=== PATIENT | female | born 1935 | race African-American/Black ===

== ENCOUNTER 2018-08-15 18:08 | Inpatient (IN) | payer OTHER, MEDICARE ==
[~2018-08-15] VITALS: Ht 160 cm; Wt 75.7 kg
[2018-08-15] MEDS ORDERED: SODIUM CHLORIDE 0.9% 1,000 ML IV ONE (19:21)
[2018-08-15 19:33] LABS: BASOPHILS % 1.1 % (0.0-2.0); CHLORIDE 111 mEq/L (98-107); EOSINOPHILS % 1.2 % (0.0-5.0); HEMATOCRIT. 30.4 % (36.0-48.0); HEMOGLOBIN. 10.3 g/dL (12.0-16.0); LYMPHOCYTES % 17.1 % (20.0-50.0); MEAN CORPUSCULAR HEMOGLOBIN 32.1 pg (28.0-32.0); MEAN CORPUSCULAR VOLUME 95.2 fL (81.0-99.0); MEAN PLATELET VOLUME 8.9 fl (7.4-10.4); MONOCYTES % 9.4 % (2.0-8.0); NEUTROPHILS % 71.2 % (40.0-76.0); PLATELET 256 x1000/uL (130-400); RED CELL DISTRIBUTION WIDTH 14.8 % (11.6-14.6)
[2018-08-15] MEDS ORDERED: IOHEXOL-300 100 ML BOTTLE ONE (21:49)
[2018-08-15] MEDS ORDERED: ONDANSETRON HCL 4MG/2ML INJ IV ONE (22:15)
[2018-08-16] VITALS (10 sets, daily range): BP systolic 96–134; BP diastolic 39–59
[2018-08-16] LABS: BASOPHILS % 0.2 % (0.0-2.0); EOSINOPHILS % 0.1 % (0.0-5.0); HEMATOCRIT. 23.8 % (36.0-48.0); LYMPHOCYTES % 8.4 % (20.0-50.0); MEAN CORPUSCULAR HEMOGLOBIN 32.2 pg (28.0-32.0); MEAN CORPUSCULAR VOLUME 96.2 fL (81.0-99.0); MEAN PLATELET VOLUME 8.1 fl (7.4-10.4); MONOCYTES % 6.4 % (2.0-8.0); NEUTROPHILS % 84.9 % (40.0-76.0); PLATELET 215 x1000/uL (130-400); RED BLOOD CELL COUNT 2.47 mill/uL (4.2-5.4); RED CELL DISTRIBUTION WIDTH 14.8 % (11.6-14.6)
[2018-08-16] MEDS ORDERED: ONDANSETRON HCL 4MG/2ML INJ IV ONE (02:30)
[2018-08-16] MEDS ORDERED: FAMO40TA7 MT (07:13)
[2018-08-16] MEDS ORDERED: ATOR10TA69 MT (07:13)
[2018-08-16] MEDS ORDERED: CHOL100046 MT (07:13)
[2018-08-16] MEDS ORDERED: AMLO10TA4 MT (07:13)
[2018-08-16] MEDS ORDERED: MONT10TA21 MT (07:13)
[2018-08-16] MEDS ORDERED: PNEUMOCOCCAL 23-VAL P-SAC VAC 0.5 ML IM ONE (07:15)
[2018-08-16] MEDS ORDERED: HYDRALAZINE 20MG/ML VIAL IV PRN (10:15)
[2018-08-16] MEDS ORDERED: NA PHOS,M-B/NA PHOS,DI-BA ENEMA 118ML PR PRN (10:15)
[2018-08-16] MEDS ORDERED: DIPHENHYDRAMINE 50MG/ML VIAL IV PRN (10:15)
[2018-08-16] MEDS ORDERED: CLONIDINE 0.1MG TABLET PO PRN (10:15)
[2018-08-16] MEDS ORDERED: DOCUSATE SODIUM 100MG CAPSULE PO PRN (10:15)
[2018-08-16] MEDS ORDERED: MAGNESIUM/ALUMINUM HYDROXIDE/SIMETHICONE 30ML UDC PO PRN (10:15)
[2018-08-16] MEDS ORDERED: ACETAMINOPHEN 650MG/20.3ML UDC PO PRN (10:15)
[2018-08-16] MEDS ORDERED: ACETAMINOPHEN 650MG SUPP PR PRN (10:15)
[2018-08-16] MEDS ORDERED: IPRATROPIUM/ALBUTEROL 0.5-3(2.5)MG/3ML NEB INH PRN (10:15)
[2018-08-16] MEDS ORDERED: GUAIFENESIN 200MG/10ML SUGAR FREE UDC PO PRN (10:15)
[2018-08-16] MEDS: DEXT 5%/0.45% NACL 1000ML 1,000 ML IV SCH (10:42)
[2018-08-16] MEDS: PANTOPRAZOLE 80 MG in SODIUM CHLORIDE 0.9% 100 ML IV SCH ×2 (12:09→22:27)
[2018-08-16 12:14] LABS: BASOPHILS % 0.4 % (0.0-2.0); EOSINOPHILS % 0.3 % (0.0-5.0); HEMATOCRIT. 24.1 % (36.0-48.0); LYMPHOCYTES % 11.5 % (20.0-50.0); MEAN CORPUSCULAR HEMOGLOBIN 31.5 pg (28.0-32.0); MEAN CORPUSCULAR VOLUME 94.4 fL (81.0-99.0); MEAN PLATELET VOLUME 9.6 fl (7.4-10.4); MONOCYTES % 8.6 % (2.0-8.0); NEUTROPHILS % 79.2 % (40.0-76.0); PLATELET 127 x1000/uL (130-400); RED BLOOD CELL COUNT 2.55 mill/uL (4.2-5.4); RED CELL DISTRIBUTION WIDTH 15.9 % (11.6-14.6)
[2018-08-16 12:20] LABS: CHLORIDE 116 mEq/L (98-107)
[2018-08-16] MEDS: SODIUM CHLORIDE 0.9% INJ 3ML FLUSH IVF SCH ×2 (14:00→22:27)
[2018-08-16] MEDS: IPRATROPIUM/ALBUTEROL 0.5-3(2.5)MG/3ML NEB INH SCH ×2 (15:12→20:50)
[2018-08-16 15:40] LABS: INR 1.1; PARTIAL THROMBOPLASTIN TIME 23.3 sec (23.4-31.0); PROTHROMBIN TIME 11.2 sec (9.6-11.0)
[2018-08-16] MEDS ORDERED: SORBITOL 70% SOLN 30ML PO NR ×2 (16:00→20:00)
[2018-08-17] VITALS (10 sets, daily range): BP systolic 101–128; BP diastolic 42–78
[2018-08-17 00:57] LABS: HEMATOCRIT 25.6 % (36.0-48.0); HEMOGLOBIN 8.6 g/dL (12.0-16.0); MEAN CORPUSCULAR HEMOGLOBIN 31.6 pg (28.0-32.0); MEAN CORPUSCULAR VOLUME 93.6 fL (81.0-99.0); PLATELET 154 x1000/uL (130-400); RED BLOOD CELL COUNT 2.73 mill/uL (4.2-5.4)
[2018-08-17] MEDS: IPRATROPIUM/ALBUTEROL 0.5-3(2.5)MG/3ML NEB INH SCH ×4 (02:00→20:42)
[2018-08-17] MEDS: SODIUM CHLORIDE 0.9% INJ 3ML FLUSH IVF SCH ×3 (05:57→20:56)
[2018-08-17 06:20] LABS: INR 1.1; PROTHROMBIN TIME 11.2 sec (9.6-11.0)
[2018-08-17 06:29] LABS: HEMATOCRIT 22.6 % (36.0-48.0); HEMOGLOBIN 7.7 g/dL (12.0-16.0); MEAN CORPUSCULAR VOLUME 93.4 fL (81.0-99.0); PLATELET 149 x1000/uL (130-400); RED BLOOD CELL COUNT 2.42 mill/uL (4.2-5.4); RED CELL DISTRIBUTION WIDTH 15.5 % (11.6-14.6)
[2018-08-17 08:25] LABS: CHLORIDE 114 mEq/L (98-107)
[2018-08-17] MEDS ORDERED: POTASSIUM CHLORIDE 20MEQ TABLET SR PO NR (09:30)
[2018-08-17] MEDS ORDERED: SIMETHICONE 40 MG/0.6 ML 30ML ONE ×2 (13:01→13:42)
[2018-08-17] MEDS ORDERED: FENTANYL CITRATE/PF 50MCG/ML 2ML VIAL ONE (13:27)
[2018-08-17] MEDS ORDERED: MIDAZOLAM HCL 5 MG/5 ML VIAL ONE (13:27)
[2018-08-17] MEDS ORDERED: MIDAZOLAM HCL 2 MG/2 ML VIAL IV PRN (13:38)
[2018-08-17] MEDS ORDERED: FENTANYL CITRATE/PF 50MCG/ML 2ML VIAL IV PRN (13:39)
[2018-08-17] MEDS ORDERED: BACTERIOSTATIC SODIUM CHLORIDE 0.9% 30ML VIAL IJ ONE (13:42)
[2018-08-17] MEDS ORDERED: DIPHENHYDRAMINE 50MG/ML VIAL IV PRN (13:49)
[2018-08-17] MEDS ORDERED: DIPHENHYDRAMINE 50MG/ML VIAL ONE (13:49)
[2018-08-17] MEDS ORDERED: PANTOPRAZOLE SODIUM 40 MG/VIAL IV ONE (16:39)
[2018-08-17] MEDS: PANTOPRAZOLE 80 MG in SODIUM CHLORIDE 0.9% 100 ML IV SCH ×2 (16:45→17:24)
[2018-08-17] MEDS: DEXT 5%/0.45% NACL 1000ML 1,000 ML IV SCH ×3 (16:46→17:36)
[2018-08-17 20:54] LABS: BASOPHILS % 0.4 % (0.0-2.0); EOSINOPHILS % 1.5 % (0.0-5.0); HEMATOCRIT. 22.7 % (36.0-48.0); HEMOGLOBIN. 7.5 g/dL (12.0-16.0); LYMPHOCYTES % 12.3 % (20.0-50.0); MEAN CORPUSCULAR HEMOGLOBIN 30.9 pg (28.0-32.0); MEAN CORPUSCULAR VOLUME 93.6 fL (81.0-99.0); MEAN PLATELET VOLUME 9.3 fl (7.4-10.4); MONOCYTES % 10.7 % (2.0-8.0); NEUTROPHILS % 75.1 % (40.0-76.0); PLATELET 133 x1000/uL (130-400); RED BLOOD CELL COUNT 2.43 mill/uL (4.2-5.4); RED CELL DISTRIBUTION WIDTH 15.6 % (11.6-14.6)
[2018-08-17 22:02] LABS: BASOPHILS % 0.3 % (0.0-2.0); EOSINOPHILS % 1.5 % (0.0-5.0); HEMATOCRIT. 21.2 % (36.0-48.0); HEMOGLOBIN. 7.2 g/dL (12.0-16.0); LYMPHOCYTES % 12.5 % (20.0-50.0); MEAN CORPUSCULAR HEMOGLOBIN 31.3 pg (28.0-32.0); MEAN CORPUSCULAR VOLUME 92.5 fL (81.0-99.0); MONOCYTES % 11.5 % (2.0-8.0); NEUTROPHILS % 74.2 % (40.0-76.0); PLATELET 134 x1000/uL (130-400); RED BLOOD CELL COUNT 2.29 mill/uL (4.2-5.4); RED CELL DISTRIBUTION WIDTH 15.7 % (11.6-14.6)
[2018-08-18] VITALS (11 sets, daily range): BP systolic 102–140; BP diastolic 42–62
[2018-08-18] MEDS: SODIUM CHLORIDE 0.9% INJ 3ML FLUSH IVF SCH ×3 (01:26→21:34)
[2018-08-18] MEDS: PANTOPRAZOLE 80 MG in SODIUM CHLORIDE 0.9% 100 ML IV SCH ×2 (01:26→14:48)
[2018-08-18] MEDS: DEXT 5%/0.45% NACL 1000ML 1,000 ML IV SCH ×3 (01:26→22:05)
[2018-08-18] MEDS: IPRATROPIUM/ALBUTEROL 0.5-3(2.5)MG/3ML NEB INH SCH ×4 (01:40→20:29)
[2018-08-18 05:31] LABS: HEMATOCRIT 25.2 % (36.0-48.0); HEMOGLOBIN 8.4 g/dL (12.0-16.0)
== END 2018-08-18 22:30 | disposition short-term general hospital (02) | DRG 377 ==
LOC: ER 18:08 → EDBEDREQ 08-16 00:16 → EDBEDREQTM 08-16 00:16 → 7WST 08-16 01:14 → EDBEDREQ 08-16 01:17 → EDBEDREQDT 08-16 01:17 → EDBEDREQTM 08-16 01:17 → ENRESERV 08-16 02:04
PROVIDERS: ADMIT Family Medicine; ATTEND Family Medicine
PROC: 30233N1 Transfusion of Nonautologous Red Blood Cells into Peripheral Vein, Percutaneous Approach (ICD-10-PCS; 2018-08-16)
PROC: 0DBM8ZZ Excision of Descending Colon, Via Natural or Artificial Opening Endoscopic (ICD-10-PCS; principal; 2018-08-17)
DX: K57.31 Diverticulosis of large intestine without perforation or abscess with bleeding (principal); E43 Unspecified severe protein-calorie malnutrition; D62 Acute posthemorrhagic anemia; I10 Essential (primary) hypertension; K63.5 Polyp of colon; E87.6 Hypokalemia; R73.9 Hyperglycemia, unspecified; Z68.29 Body mass index [BMI] 29.0-29.9, adult; J45.909 Unspecified asthma, uncomplicated; Z90.49 Acquired absence of other specified parts of digestive tract; Z85.038 Personal history of other malignant neoplasm of large intestine
CPT/HCPCS: 36415; 74177; 80048; 84484; 85014; 85018; 85027; 86850; 86900; 86920; 88305; 90732; 93005; 94640; 96365; 96375; 99152; 99153; 99285; C1893; C9113; J1200; J2250; J2405; J3010; J3490; J7030; J7040; J7050; J7620; P9016; P9021; Q9967; G0500

== ENCOUNTER 2019-06-12 03:24 | Inpatient (IN) | payer MEDICARE, OTHER ==
[2019-06-12] VITALS (8 sets, daily range): BP systolic 99–120; BP diastolic 54–72
[~2019-06-12] VITALS: Ht 157.5 cm; Wt 74.8 kg
[~2019-06-12 03:24] MED LIST: AMLO10TA4 MT; ATOR10TA69 MT; CHOL100046 MT; FAMO40TA7 MT; MONT10TA21 MT
[2019-06-12 04:28] LABS: BASOPHILS % 1.3 % (0.0-2.0); EOSINOPHILS % 5.9 % (0.0-5.0); HEMATOCRIT. 33.1 % (36.0-48.0); HEMOGLOBIN. 10.9 g/dL (12.0-16.0); MEAN CORPUSCULAR HEMOGLOBIN 31.5 pg (28.0-32.0); MEAN CORPUSCULAR VOLUME 95.3 fL (81.0-99.0); MEAN PLATELET VOLUME 9.5 fl (7.4-10.4); MONOCYTES % 13.2 % (2.0-8.0); NEUTROPHILS % 33.6 % (40.0-76.0); PLATELET 299 x1000/uL (130-400); RED BLOOD CELL COUNT 3.47 mill/uL (4.2-5.4); RED CELL DISTRIBUTION WIDTH 15.7 % (11.6-14.6)
[2019-06-12 04:33] LABS: CHLORIDE 108 mEq/L (98-107)
[2019-06-12 04:35] LABS: PROTHROMBIN TIME 10.7 sec (9.6-11.0)
[2019-06-12] MEDS ORDERED: TRANEXAMIC ACID 1,000 MG/10 ML IV ONE (05:00)
[2019-06-12] MEDS ORDERED: MAGNESIUM 2 G PREMIX 50 ML IV ONE (05:00)
[2019-06-12] MEDS ORDERED: TRANEXAMIC ACID 1,000 MG in SODIUM CHLORIDE 0.9% 100 ML IV NR (05:15)
[2019-06-12 06:07] LABS: HEMATOCRIT 28.8 % (36.0-48.0); HEMOGLOBIN 9.5 g/dL (12.0-16.0); MEAN CORPUSCULAR HEMOGLOBIN 31.8 pg (28.0-32.0); MEAN CORPUSCULAR VOLUME 96.1 fL (81.0-99.0); PLATELET 246 x1000/uL (130-400); RED CELL DISTRIBUTION WIDTH 15.7 % (11.6-14.6)
[2019-06-12] MEDS ORDERED: DIPHENHYDRAMINE 50MG/ML VIAL IV PRN (10:45)
[2019-06-12] MEDS ORDERED: NA PHOS,M-B/NA PHOS,DI-BA ENEMA 118ML PR PRN (10:45)
[2019-06-12] MEDS ORDERED: LORAZEPAM 2MG/ML CPJ IV PRN (10:45)
[2019-06-12] MEDS ORDERED: ONDANSETRON HCL 4MG/2ML INJ IV PRN (10:45)
[2019-06-12] MEDS ORDERED: IPRATROPIUM/ALBUTEROL 0.5-3(2.5)MG/3ML NEB NEB PRN (10:45)
[2019-06-12] MEDS ORDERED: HYDROCODONE/ACETAMINOPHEN 5/325MG TABLET PO PRN (10:45)
[2019-06-12] MEDS ORDERED: MAGNESIUM/ALUMINUM HYDROXIDE/SIMETHICONE 30ML UDC PO PRN (10:45)
[2019-06-12] MEDS ORDERED: CLONIDINE 0.1MG TABLET PO PRN (10:45)
[2019-06-12] MEDS ORDERED: DOCUSATE SODIUM 100MG CAPSULE PO PRN (10:45)
[2019-06-12] MEDS ORDERED: MORPHINE SULFATE 2 MG/ML CPJ (NOT FOR IM USE) IV PRN (10:45)
[2019-06-12] MEDS ORDERED: ACETAMINOPHEN 325MG TABLET PO PRN (10:45)
[2019-06-12] MEDS ORDERED: GUAIFENESIN 200MG/10ML SUGAR FREE UDC PO PRN (10:45)
[2019-06-12] MEDS: DEXT 5%/0.45% NACL 1000ML 1,000 ML IV SCH (11:45)
[2019-06-12 16:21] LABS: CHLORIDE 112 mEq/L (98-107)
[2019-06-12] MEDS: PANTOPRAZOLE SODIUM 40 MG/VIAL IV SCH (16:50)
[2019-06-12 19:29] LABS: HEMATOCRIT 29.8 % (36.0-48.0); HEMOGLOBIN 9.8 g/dL (12.0-16.0)
[2019-06-12 19:42] LABS: TOTAL IRON BINDING CAPACITY 243 ug/dL (250-450)
[2019-06-13] VITALS (55 sets, daily range): BP systolic 54–160; BP diastolic 33–108
[2019-06-13] MEDS: DEXT 5%/0.45% NACL 1000ML 1,000 ML IV SCH ×3 (00:09→21:40)
[2019-06-13 00:56] LABS: HEMATOCRIT 26.4 % (36.0-48.0); HEMOGLOBIN 8.7 g/dL (12.0-16.0)
[2019-06-13 04:36] LABS: BASOPHILS % 0.6 % (0.0-2.0); EOSINOPHILS % 4.6 % (0.0-5.0); HEMATOCRIT. 25.7 % (36.0-48.0); HEMOGLOBIN. 8.6 g/dL (12.0-16.0); LYMPHOCYTES % 20.2 % (20.0-50.0); MEAN CORPUSCULAR HEMOGLOBIN 31.2 pg (28.0-32.0); MEAN CORPUSCULAR VOLUME 93.7 fL (81.0-99.0); MEAN PLATELET VOLUME 8.9 fl (7.4-10.4); MONOCYTES % 13.9 % (2.0-8.0); NEUTROPHILS % 60.7 % (40.0-76.0); PLATELET 201 x1000/uL (130-400); RED BLOOD CELL COUNT 2.74 mill/uL (4.2-5.4); RED CELL DISTRIBUTION WIDTH 15.4 % (11.6-14.6)
[2019-06-13 08:06] LABS: CHLORIDE 113 mEq/L (98-107)
[2019-06-13 08:13] LABS: LDL CHOLESTEROL 56 mg/dL (5-100)
[2019-06-13 08:14] LABS: HDL CHOLESTEROL 46 mg/dL (40-59)
[2019-06-13 08:15] LABS: T4 FREE 0.91 ng/dL (0.76-1.46)
[2019-06-13] MEDS ORDERED: NOREPINEPHRINE 4 MG in DEXTROSE 5% WATER 250 ML IV PRN (09:30)
[2019-06-13] MEDS ORDERED: NOREPINEPHRINE 4MG/250ML PMX 250 ML IV ONE (09:30)
[2019-06-13 10:39] LABS: HEMATOCRIT 29.7 % (36.0-48.0)
[2019-06-13 11:15] LABS: T4 FREE 0.9 ng/dL (0.76-1.46)
[2019-06-13] MEDS: PANTOPRAZOLE SODIUM 40 MG/VIAL IV SCH (12:11)
[2019-06-13 17:42] LABS: HEMATOCRIT 31.5 % (36.0-48.0); HEMOGLOBIN 10.5 g/dL (12.0-16.0)
[2019-06-13 18:21] LABS: CREATINE KINASE 111 IU/L (26-192)
[2019-06-13 18:22] LABS: CREATINE KINASE MB FRACTION 1.1 ng/mL (0.5-3.6)
[2019-06-13] MEDS ORDERED: POTASSIUM CHLORIDE INJ 40 MEQ in DEXT 5% WATER 500 ML IV NR (21:00)
[2019-06-13 21:08] LABS: HEMATOCRIT 28.6 % (36.0-48.0); HEMOGLOBIN 9.7 g/dL (12.0-16.0)
[2019-06-13 21:25] LABS: CREATINE KINASE 104 IU/L (26-192)
[2019-06-14] VITALS (34 sets, daily range): BP systolic 107–172; BP diastolic 48–94
[2019-06-14 00:56] LABS: HEMATOCRIT 29.5 % (36.0-48.0); HEMOGLOBIN 9.9 g/dL (12.0-16.0)
[2019-06-14 05:32] LABS: HEMATOCRIT 29.4 % (36.0-48.0); HEMOGLOBIN 9.9 g/dL (12.0-16.0)
[2019-06-14 05:57] LABS: CREATINE KINASE MB FRACTION 1.2 ng/mL (0.5-3.6)
[2019-06-14] MEDS: PANTOPRAZOLE SODIUM 40 MG/VIAL IV SCH (08:15)
[2019-06-14] MEDS: DEXT 5%/0.45% NACL 1000ML 1,000 ML IV SCH ×2 (09:00→15:44)
[2019-06-14 09:38] LABS: HEMATOCRIT 28.1 % (36.0-48.0); HEMOGLOBIN 9.5 g/dL (12.0-16.0)
[2019-06-14 18:02] LABS: HEMATOCRIT 29.5 % (36.0-48.0); HEMOGLOBIN 9.7 g/dL (12.0-16.0)
[2019-06-16 04:07] LABS: CA 19-9 < 2 U/mL (0-35)
== END 2019-06-14 20:35 | disposition short-term general hospital (02) | DRG 378 ==
LOC: ER 03:24 → 5EST 06:39 → EDBEDREQTM 06:40 → EDBEDREQSVC 06:40 → EDBEDREQ 06:40 → ENRESERV 08:34 → CMPBEDREQ 06-13 07:37 → MICUSO 06-13 08:30 → 6WST 06-14 16:27
PROVIDERS: ADMIT Internal Medicine; ATTEND Internal Medicine
PROC: 30233H1 Transfusion of Nonautologous Whole Blood into Peripheral Vein, Percutaneous Approach (ICD-10-PCS; principal; 2019-06-12)
PROC: 02HV33Z Insertion of Infusion Device into Superior Vena Cava, Percutaneous Approach (ICD-10-PCS; 2019-06-13)
PROC: B548ZZA Ultrasonography of Superior Vena Cava, Guidance (ICD-10-PCS; 2019-06-13)
DX: K57.91 Diverticulosis of intestine, part unspecified, without perforation or abscess with bleeding (principal); E46 Unspecified protein-calorie malnutrition; E86.0 Dehydration; I50.9 Heart failure, unspecified; I11.0 Hypertensive heart disease with heart failure; K21.9 Gastro-esophageal reflux disease without esophagitis; D50.0 Iron deficiency anemia secondary to blood loss (chronic); E78.00 Pure hypercholesterolemia, unspecified; E78.5 Hyperlipidemia, unspecified; E87.6 Hypokalemia; J44.9 Chronic obstructive pulmonary disease, unspecified; I95.9 Hypotension, unspecified; Z85.038 Personal history of other malignant neoplasm of large intestine; Z90.49 Acquired absence of other specified parts of digestive tract; Z68.30 Body mass index [BMI] 30.0-30.9, adult; Z79.899 Other long term (current) drug therapy
CPT/HCPCS: 36415; 71045; 76937; 78278; 80048; 80053; 80061; 82105; 82270; 82378; 82550; 82553; 82728; 83036; 83540; 83550; 83880; 84439; 84443; 84484; 85014; 85018; 85025; 85027; 85379; 86301; 86850; 86900; 86920; 93005; 93306; 99285; A9560; C1725; C9113; J3475; J3480; J7050; J7060; P9016

== ENCOUNTER 2019-12-08 21:59 | Emergency (ER) | payer OTHER ==
[~2019-12-08] VITALS: Ht 160 cm; Wt 68.0 kg
[2019-12-08 23:17] LABS: BASOPHILS % 0.9 % (0.0-2.0); EOSINOPHILS % 3.1 % (0.0-5.0); HEMATOCRIT. 34.6 % (36.0-48.0); HEMOGLOBIN. 11.5 g/dL (12.0-16.0); LYMPHOCYTES % 28.2 % (20.0-50.0); MEAN CORPUSCULAR HEMOGLOBIN 31.4 pg (28.0-32.0); MEAN CORPUSCULAR VOLUME 94.3 fL (81.0-99.0); MEAN PLATELET VOLUME 8.7 fl (7.4-10.4); MONOCYTES % 13.9 % (2.0-8.0); NEUTROPHILS % 53.9 % (40.0-76.0); PLATELET 284 x1000/uL (130-400); RED BLOOD CELL COUNT 3.67 mill/uL (4.2-5.4); RED CELL DISTRIBUTION WIDTH 16.1 % (11.6-14.6)
[2019-12-08 23:21] LABS: CHLORIDE 110 mEq/L (98-107)
[2019-12-08 23:25] LABS: PROTHROMBIN TIME 10.9 sec (9.6-11.0)
[2019-12-08] MEDS ORDERED: POTASSIUM CHLORIDE 20MEQ TABLET SR PO NR (23:45)
[2019-12-09 00:37] LABS: CLARITY URINE CLEAR (CLEAR); COLOR URINE YELLOW (YELLOW); KETONES URINE NEGATIVE (NEGATIVE); LEUKOCYTE ESTERASE URINE NEGATIVE (NEGATIVE); NITRITE URINE NEGATIVE (NEGATIVE); OCCULT BLOOD URINE NEGATIVE (NEGATIVE); PH URINE 6.5 (4.5-8.0); PROTEIN URINE NEGATIVE (NEGATIVE); SPECIFIC GRAVITY URINE 1.009 (1.005-1.030); UROBILINOGEN URINE 0.2 E.U./dL (0.2-1.0)
[2019-12-09 03:57] VITALS: BP 124/77
== END 2019-12-09 04:11 | disposition short-term general hospital (02) ==
LOC: ER 21:59 → CANBEDREQ 12-09 07:35
DX: K62.5 Hemorrhage of anus and rectum (principal); I10 Essential (primary) hypertension; E78.00 Pure hypercholesterolemia, unspecified; J45.909 Unspecified asthma, uncomplicated; Z87.19 Personal history of other diseases of the digestive system
CPT/HCPCS: 36415; 80053; 81003; 82270; 85025; 86850; 86900; 93005; 99285

== ENCOUNTER 2024-06-20 21:58 | Emergency (ER) | payer MEDICAID, OTHER ==
[~2024-06-20] VITALS: Ht 165.1 cm; Wt 70.1 kg
[~2024-06-20 21:58] MED LIST changes: +MONT-46 MT; -MONT10TA21 MT
[2024-06-20 22:39] VITALS: O2SAT 98
[2024-06-20] MEDS ORDERED: TACR30OI5 TP (23:51)
[2024-06-20] MEDS ORDERED: CRIS60OI TP (23:51)
[2024-06-20] MEDS ORDERED: CLOT15CR27 TP (23:51)
[2024-06-21 00:33] VITALS: BP 164/69; PULSE 64; RESP 16; TEMP 36.9; O2SAT 98
[2024-06-21] MEDS: DEXAMETHASONE 10 MG/ML VIAL PO ONE (00:37)
== END 2024-06-21 00:38 | disposition home or self-care (01) ==
LOC: ER 22:42
DX: L30.9 Dermatitis, unspecified (principal); B35.4 Tinea corporis; I10 Essential (primary) hypertension; J45.909 Unspecified asthma, uncomplicated; E78.00 Pure hypercholesterolemia, unspecified; Z79.899 Other long term (current) drug therapy; Z79.52 Long term (current) use of systemic steroids; Z85.038 Personal history of other malignant neoplasm of large intestine
CPT/HCPCS: 99283; J1100